=== PATIENT | female | born 1945 | race Caucasian/White ===

== ENCOUNTER 2016-06-15 11:56 | Emergency (ER) | payer MEDICARE, OTHER ==
--- NOTE | ~2016-06-15 | EKG ---
PATIENT: MARC SANTOS UNIT #: [id number] Ventricular Rate: 52 BPM Atrial Rate: 52 BPM P-R Interval: 188 ms QRS Duration: 80 ms Q-T Interval: 466 ms QTC Calculation(Bezet): 433 ms P [place]: 40 degrees Calculated R [place]: 1 degrees Calculated T [place]: 16 degrees Diagnosis Line: Sinus bradycardia Diagnosis Line: Otherwise normal ECG Diagnosis Line: Diagnosis Line: Confirmed by SHERLY CHAUDHRY MD ([id number]) on Diagnosis Line: 06/16/2016 12:07:47 AM INTERPRETING MD: ISIDORO LÓPEZ
--- NOTE | ~2016-06-15 | CR72 ---
[facility] A Service of [facility] RADIOLOGY TEXT RESULTS PATIENT: MARC BUSTAMANTE LOCATION: [facility] : 43 UNIT #: [id number] AGE: [address]: Bhavin Niño MD SEX: F ORDER DR: [id number] [facility] [address] [place], [place] [address] [id number] E MR#: [id number] #: [id number] NAME: MARC BUSTAMANTE : 1945 SEX: F STUDY DATE/TIME: 06/15/2016 12:00 UNIT: MALIA ROOM: STUDY DESCRIPTION: CR Chest Single View Portable Attending Physician: Bhavin Niño M.D. Ordering Physician: Bhavin Niño M.D. Primary Care Physician: Monserrat Petersen M.D. MEDICAL IMAGING REPORT This report is preliminary unless electronic signature is present EXAM Frontal chest, 06/15/2016 INDICATIONS Short of air, difficulty breathing, cough, congestion, right lung collapse 2 years ago, symptoms 2 days. TECHNIQUE Frontal chest was performed. COMPARISON 10/06/2013 FINDINGS The patient is rotated to the right. Cardiac silhouette is enlarged but stable. The aorta demonstrates atherosclerotic change. Vascularity is within normal limits. There is old, healed granulomatous disease. No effusion, pneumothorax or dense consolidation. IMPRESSION 1. Cardiomegaly without distinct volume overload. 2. Old healed granulomatous disease. 3. Exam degraded by patient rotation to the right. 4. Resolution of free air seen on the prior 2013 study. Dictated by... Milind Wooten M.D. THIS IS AN ELECTRONICALLY VERIFIED REPORT Milind Wooten M.D. at 06/16/2016 7:29 AM JEB/genevieve [facility] A Service [facility] RADIOLOGY TEXT RESULTS PATIENT: MARC BUSTAMANTE LOCATION: [facility] : 43 UNIT #: [id number] AGE: [address]: Bhavin Niño MD SEX: F ORDER DR: TD: 06/15/2016 18:13 JOB #: [id number] MEDICAL IMAGING REPORT COPY
[~2016-06-15 11:56] MED LIST: ADVAIR 250-501 EACH IH; ADVAIR 2501 DISK W/1; ALBUTEROL MININEB NEB; ALPRAZOLAM PO; ASPIR-TRIN325 MG PO; AUGMENTIN875 MG PO; COREG6.25 MG PO; HYDROCHLOROTH12.5 M1; LASIX80 MG PO; LISINOPRIL5 MG PO; MIRAPEX1 MG; MULTI-VITAMIN1 EAC1; PREDNISONE10 MG PO; SINGULAIR PO; TOFRANIL25 MG
[2016-06-15 12:00] LABS: BASOPHIL% 0.1 % (0-2.5); DIFF IND NO; EOSINOPHIL# 1.4 X10e3 (0-0.7); EOSINOPHIL% 19.5 % (0.0-7.0); HEMATOCRIT 39.5 % (35.0-45.0); HEMOGLOBIN 13.1 gm/dL (12.0-16.0); LYMPHOCYTE# 2.3 X10e3 (1.0-3.5); LYMPHOCYTE% 32.9 % (17.0-45.0); MEAN CELL VOLUME 86.4 FL (83-96); MEAN CORPUSCULAR HEMOGLOBIN 28.7 PG (28-34); MEAN CORPUSCULAR HGB CONC 33.2 g/dL (30-36); MEAN PLATELET VOLUME 8.1 FL (6.5-11.5); MONOCYTE# 0.6 X10e3 (0-1.0); MONOCYTE% 8.7 % (3.0-12.0); NEUTROPHIL# 2.7 X10e3 (1.5-7.1); NEUTROPHIL% 38.8 % (40-75); PLATELET COUNT 229 X10e3 (140-420); RED BLOOD COUNT 4.57 X10e (3.90-5.30); RED CELL DISTRIBUTION WIDTH 13.7 % (11.0-15.5); WHITE BLOOD COUNT 7.1 X10e3 (4.0-10.5)
[2016-06-15 12:21] LABS: ALBUMIN SERUM 4.4 g/dL (3.5-5.0); ALKALINE PHOSPHATASE 54 U/L (32-92); ALT (SGPT) 21 U/L (10-40); AST (SGOT) 26 U/L (10-42); BILIRUBIN, DIRECT 0.1 mg/dL (0.0-0.2); BILIRUBIN,INDIRECT 0.8 mg/dL (0.0-0.9); BILIRUBIN,TOTAL 0.9 mg/dL (0.2-2.0); BLOOD UREA NITROGEN 13 mg/dL (9-23); BUN/CREATININE RATIO 16.25; CALCIUM SERUM 9.1 mg/dL (8.4-10.2); CARBON DIOXIDE 24 mmol/L (22-31); CHLORIDE 106 mmol/L (100-111); CREATININE SERUM 0.8 mg/dL (0.6-1.4); GLOM FILT RATE Estimated ABOVE60 mL/min (>60); GLUCOSE FASTING 93 mg/dL (70-110); POTASSIUM 3.6 mmol/L (3.5-5.1); PROTEIN TOTAL SERUM 7.1 g/dL (6.0-8.3); SODIUM 139 mmol/L (135-145)
== END 2016-06-15 14:50 | disposition home or self-care (01) ==
LOC: CED 11:56
PROVIDERS: Emergency Medicine
DX: J44.1 Chronic obstructive pulmonary disease with (acute) exacerbation (principal); I10 Essential (primary) hypertension; Z88.7 Allergy status to serum and vaccine
CPT/HCPCS: 36415; 71010; 80048; 80076; 85025; 93005; 94640; 96374; 99284; J2930

== ENCOUNTER 2016-07-16 09:53 | Observation (INO) | payer MEDICARE, OTHER ==
--- NOTE | ~2016-07-16 | HP ---
Unit #: [id number] #: [id number] Patient: MARC BUSTAMANTE [id number] [address] [place], [place] [address] [id number] I MR#: [id number] NAME: MARC BUSTAMANTE ROOM: 469 Age: 71 Sex: F Admission Date: 07/16/2016 : 1945 Attending Physician: Ronal Kurtz M.D. Referring Physician: Ronal Kurtz M.D. Primary Care Physician: Monserrat Petersen M.D. HISTORY AND PHYSICAL HISTORY OF PRESENT ILLNESS Ms. Craft is a 71-year-old white female who is followed in our office for COPD. She was seen there last on 06/25/2016 post exacerbation of COPD. She apparently received a course of steroids and responded positively to that. Her medications were adjusted that day to include albuterol, Anoro and Arnuity, an inhaled corticosteroid was added. She was to call if it provided improvement. She said she called the last two days and needed a refill but had not received a call back yet. She was in her normal state of health and came to the endoscopy suite for scheduled colonoscopy today. Post colonoscopy she awakened quite dyspneic with wheezing and we were called to see the patient. She was placed on supplemental oxygen. She had not had any fever, chills, sweats, cough, or purulent sputum. She denied really any chest pain. She did have some fullness in her chest. PAST MEDICAL HISTORY Significant for: 1. History of COPD/asthma. 2. Celiac sprue. 3. Possible hypertension. 4. She had a history of HERNÁN but apparently lost weight and had a uvulopharyngopalatoplasty. Follow up sleep study revealed no HERNÁN. 5. 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 Landon Manriquez. 6. History of allergic rhinitis. 7. Hypertension. 8. Some degree of depression. PAST SURGICAL HISTORY She denies any surgery except for a chest tube placement for a tension pneumothorax in 2013. HOME MEDICATIONS 1. Arnuity. 2. Anoro. 3. Ventolin. 4. Nasacort. 5. Albuterol. 6. Lisinopril. 7. Atorvastatin. 8. Zoloft. 9. Coreg. 10. Lyrica. Unit #: [id number] #: [id number] Patient: MARC BUSTAMANTE 11. Singulair. 12. Tizanidine. 13. Alendronate. 14. Osteo Bi-Flex. 15. Naproxen. 16. Prednisolone. 17. Zyrtec. 18. Aspirin. 19. Vitamins B12, E, and D3. ALLERGIES None known. SOCIAL HISTORY Nonsmoker. No alcohol. FAMILY HISTORY Negative for lung disease. REVIEW OF SYSTEMS Otherwise unremarkable. PHYSICAL EXAMINATION VITAL SIGNS: Blood pressure 121/70, pulse 70, respiratory rate 18, afebrile. GENERAL: White female in no distress. HEENT: Normocephalic, atraumatic. Pupils equal, round, reactive. Sclerae anicteric. Nasal passages patent. Posterior pharynx clear. Airway is small post UP3. NECK: Supple. Trachea midline. No cervical or supraclavicular lymphadenopathy. LUNGS: Reveal expiratory wheezing bilaterally. She has marked kyphosis at the thoracic spine. HEART: Regular rate and rhythm. Could not appreciate murmur, rub or gallop. ABDOMEN: Nontender. Bowel sounds present. No hepatosplenomegaly. EXTREMITIES: Without clubbing, cyanosis, or edema. NEUROLOGIC: Awake, oriented x3. Cranial nerves grossly intact. Muscle strength symmetric. PSYCHIATRIC: Affect calm. SKIN: Warm and dry. DIAGNOSTIC STUDIES LABORATORY: Currently, room air O2 saturation is 91% to 93%. IMPRESSION 1. Asthma exacerbation, post colonoscopy. 2. History of hypertension. 3. Allergic rhinitis. 4. History of nonischemic cardiomyopathy. 5. Other problems as mentioned above. PLAN 1. Admit for observation. 2. Treat with inhaled bronchodilators, IV steroids. 3. Will rule out AL. 4. I have ordered chest x-ray. 5. Will make further recommendations pending this. Suspect she will Unit #: [id number] #: [id number] Patient: MARC BUSTAMANTE only need to be monitored overnight. Dictated by Melissa Richmond/oniel TD: 07/16/2016 19:40 JOB #: [id number] CC: Mark Hendrix M.D. HISTORY AND PHYSICAL Page 1 of 1 X Rajinder Jordan MD HISTORY AND PHYSICAL
--- NOTE | ~2016-07-16 | DS ---
Unit #: [id number] #: [id number] Patient: MARC BUSTAMANTE [id number] [address] [address] [id number] I MR#: [id number] NAME: MARC BUSTAMANTE ROOM: 469 Age: 71 Sex: F Admission Date: 07/16/2016 : 1945 Discharge Date: 07/17/2016 Attending Physician: Rajinder Jordan M.D. Referring Physician: Ronal Kurtz M.D. Primary Care Physician: Monserrat Petersen M.D. DISCHARGE SUMMARY DISCHARGE DIAGNOSES 1. Chronic obstructive pulmonary disease exacerbation. 2. Severe shortness of breath and respiratory distress, resolved. 3. Status post colonoscopy. 4. History of obstructive sleep apnea with resolution following weight loss. 5. Hypertension. 6. Depression. 7. Allergic rhinitis. 8. Significant cardiac disease with vague details. She did have cardiomyopathy on previous evaluation but there is mention of normal left ventricular function now. DISCHARGE MEDICATIONS 1. Anoro one puff daily. 2. Arnuity one puff daily. 3. Prednisone 40 mg a day for five days. 4. Albuterol mini nebs q.i.d. p.r.n. 5. Albuterol inhaler q.i.d. p.r.n. 6. Lyrica 75 mg a day. 7. Zoloft 100 mg a day. 8. Coreg 6.25 mg twice daily. 9. Lipitor 40 mg at bedtime. 10. Zestril 5 mg at bedtime. 11. Fosamax 70 mg weekly. 12. Singulair 10 mg daily. 13. Aspirin 81 mg daily. 14. She is on a variety of p.r.n. medications that she can continue which are over the counter. FOLLOWUP 1. Dr. Petersen for general medical care. 2. Dr. Hendrix's nurse practitioner in two weeks. 3. Dr. Hendrix in six to eight weeks[address] 4. Dr. Kurtz, as he desires. 5. Dr. Manriquez as scheduled. ACTIVITY No specific restrictions. Oxygenation needs will be checked prior to discharge. Unit #: [id number] #: [id number] Patient: DIANNA,MARC DIET As per previous. DESCRIPTION OF HOSPITALIZATION Apparently, the patient received colonoscopy. Those results are not available. There is no dictation in the computer. She developed severe shortness of breath and wheezing. Dr. Jordan was called and admitted her to the hospital. She was treated with oxygen, steroids and she feels much better. In fact, today, on the day of discharge, she is asking for discharge. She feels near her baseline pulmonary status. There has been no fever, sputum production or anginal chest pain. Overall, she was discharged in markedly improved condition. We will continue her inhaled steroids and a prescription has been provided. (1) sprue, hypertension, depression, allergic rhinitis and nonischemic cardiomyopathy in the past but some mention of improved left ventricular function. 2. Obstructive sleep apnea, resolved with weight loss, although that study is unavailable for my review at present. Dictated by... Mark Hendrix M.D. DEENA/emilia TD: 07/18/2016 11:05 JOB #: [id number] DISCHARGE SUMMARY Page 1 of 1 X Mark Hendrix MD DISCHARGE SUMMARY
--- NOTE | ~2016-07-16 | OR ---
Unit #: [id number] #: [id number] Patient: MARC BUSTAMANTE [id number] [address] [place], [place] [address] [id number] MR#: [id number] NAME: MARC BUSTAMANTE ROOM: 469 Date of Procedure: 07/16/2016 Admission Date: 07/16/2016 Surgeon: Ronal Kurtz M.D. : 1945 Attending Physician: Rajinder Jordan M.D. Referring Physician: Ronal Kurtz M.D. Primary Care Physician: Monserrat Petersen M.D. OPERATIVE REPORT PROCEDURE PERFORMED Colonoscopy with snare polypectomy to cecum. INDICATIONS FOR PROCEDURE The patient with average risk for colorectal cancer, here for screening colonoscopy. MEDICATIONS Monitored anesthesia. POSTOPERATIVE FINDINGS 1. Polyp 6 to 8 mm in descending colon, snared and sent for histopathology. 2. Rest of the colon exam to cecum was normal with good prep. PLAN Repeat colonoscopy in 5 years. Follow up on the pathology report. DESCRIPTION OF PROCEDURE The patient was explained of the procedure, risks, and benefits along with risks and benefits of anesthesia. She was brought to the endoscopy room. Propofol anesthesia was given. Rectal exam was done, which was normal. Colonoscope was lubricated, passed up the rectum, advanced under direct vision all the way to the cecum. Cecum was identified by ileocecal valve and appendiceal orifice. Then, I started to pull the scope out carefully looking. Polyp in the descending colon was snared and sent for histopathology. Rest of the mucosa was normal. I retroflexed in the rectum, small hemorrhoids seen. Scope was gently pulled out. She tolerated it well. Dictated by... Melissa Cox/david TD: 07/31/2016 23:56 JOB #: [id number] Unit #: [id number] #: [id number] Patient: MARC BUSTAMANTE OPERATIVE REPORT Page 1 of 1 X Ronal Kurtz MD PROCEDURE OPERATIVE NOTE
--- NOTE | ~2016-07-16 | CR72 ---
[facility] A Service of [facility] RADIOLOGY TEXT RESULTS PATIENT: MARC BUSTAMANTE LOCATION: [facility] 469-01 : 43 UNIT #: [id number] AGE: [address]: Ronal Kurtz MD SEX: F ORDER DR: [id number] [facility] [address] [place], [place] [address] [id number] O MR#: [id number] Acc #: [id number] NAME: MARC BUSTAMANTE : 1945 SEX: F STUDY DATE/TIME: 07/16/2016 15:31 UNIT: RN IMAGING ROOM: STUDY DESCRIPTION: CR Chest Single View Portable Attending Physician: Ronal Kurtz M.D. Referring Physician: Ronal Kurtz M.D. Ordering Physician: Ronal Kurtz M.D. Primary Care Physician: Monserrat Petersen M.D. MEDICAL IMAGING REPORT This report is preliminary unless electronic signature is present EXAM Portable chest 07/16/2016 HISTORY Shortness of air after endoscopy today. COMPARISON 06/15/2016 FINDINGS A portable view of the chest was obtained. The heart size and vascularity are normal and the lungs are clear. Bones are unremarkable. IMPRESSION No active disease. Dictated by... Ciaran Pimentel M.D. THIS IS AN ELECTRONICALLY VERIFIED REPORT Ciaran Pimentel M.D. at 07/17/2016 8:21 AM ROVERTO/dorothy TD: 07/16/2016 16:52 JOB #: [id number] MEDICAL IMAGING REPORT Page 1 of 1 COPY
[2016-07-16] MEDS ORDERED: ALBUTEROL17 GM INH (10:36)
[2016-07-16] MEDS ORDERED: ANORO ELLIPTA1 EACH INH (10:36)
[2016-07-16] MEDS ORDERED: NASACORT10.8 ML (10:36)
[2016-07-16] MEDS ORDERED: ARNUITY ELLIP100 MCG INH (10:36)
[2016-07-16] MEDS ORDERED: ALBUTEROL SULFATE NEB (10:37)
[2016-07-16] MEDS ORDERED: LISINOPRIL5 MG PO (10:37)
[2016-07-16] MEDS ORDERED: SERTRALINE HCL100 M1 PO (10:38)
[2016-07-16] MEDS ORDERED: LIPITOR PO (10:38)
[2016-07-16] MEDS ORDERED: CARVEDILOL6.25 MG PO (10:39)
[2016-07-16] MEDS ORDERED: LYRICA75 MG PO (10:39)
[2016-07-16] MEDS ORDERED: SINGULAIR PO (10:39)
[2016-07-16] MEDS ORDERED: TIZANIDINE HCL4 M1 PO (10:40)
[2016-07-16] MEDS ORDERED: FOSAMAX70 MG PO (10:40)
[2016-07-16] MEDS ORDERED: OSTEO BI-FLEX1 EAC2 PO (10:40)
[2016-07-16] MEDS ORDERED: PREDNISOLONE AC OU (10:41)
[2016-07-16] MEDS ORDERED: NAPROSYN500 MG PO (10:41)
[2016-07-16] MEDS ORDERED: ASPIRIN EC81 M1 PO (10:42)
[2016-07-16] MEDS ORDERED: MULTIPLE VITAM1 EAC1 (10:42)
[2016-07-16] MEDS ORDERED: VITAMIN D3 PO (10:42)
[2016-07-16] MEDS ORDERED: ZYRTEC10 M1 PO (10:42)
[2016-07-16] MEDS ORDERED: VITAMIN B 12 PO (10:43)
[2016-07-16] MEDS ORDERED: VITAMIN E PO (10:43)
[2016-07-16 17:09] LABS: EOSINOPHIL# 0.2 X10e3 (0-0.7); EOSINOPHIL% 1.7 % (0.0-7.0); HEMATOCRIT 46.2 % (35.0-45.0); LYMPHOCYTE% 9.4 % (17.0-45.0); MEAN CELL VOLUME 89.8 FL (83-96); MEAN CORPUSCULAR HEMOGLOBIN 29.1 PG (28-34); MEAN CORPUSCULAR HGB CONC 32.4 g/dL (30-36); MEAN PLATELET VOLUME 8.1 FL (6.5-11.5); MONOCYTE# 0.3 X10e3 (0-1.0); MONOCYTE% 2.7 % (3.0-12.0); NEUTROPHIL# 9.2 X10e3 (1.5-7.1); NEUTROPHIL% 86.2 % (40-75); PLATELET COUNT 271 X10e3 (140-420); RED BLOOD COUNT 5.14 X10e (3.90-5.30); RED CELL DISTRIBUTION WIDTH 13.5 % (11.0-15.5); WHITE BLOOD COUNT 10.7 X10e3 (4.0-10.5)
[2016-07-16 17:11] LABS: DIFF IND NO
[2016-07-16 17:25] LABS: CK TOTAL 58 IU/L (26-140)
[2016-07-16 17:39] LABS: BUN/CREATININE RATIO 12.5; CALCIUM SERUM 9.4 mg/dL (8.4-10.2); CREATININE SERUM 0.8 mg/dL (0.6-1.4); GLOM FILT RATE Estimated 73.2 mL/min (>60); POTASSIUM 3.9 mmol/L (3.5-5.1)
[2016-07-16 23:43] LABS: %MB 2.7 % (0.0-4.0); MB 1.8 ng/ml
[2016-07-17] MEDS ORDERED: ARNUITY ELLIP100 MCG INH (12:51)
[2016-07-17] MEDS ORDERED: PREDNISONE PO (12:52)
[2016-07-17] MEDS ORDERED: ALBUTEROL MININEB NEB (12:53)
== END 2016-07-17 17:30 | disposition home or self-care (01) ==
LOC: COPS 09:53 → CPACUOF 15:50 → C4C 17:20
PROVIDERS: Internal Medicine
DX: Z12.11 Encounter for screening for malignant neoplasm of colon (principal); D12.4 Benign neoplasm of descending colon; J44.1 Chronic obstructive pulmonary disease with (acute) exacerbation; I42.9 Cardiomyopathy, unspecified; K21.9 Gastro-esophageal reflux disease without esophagitis; Z68.33 Body mass index [BMI] 33.0-33.9, adult; Z88.7 Allergy status to serum and vaccine; I10 Essential (primary) hypertension; Z79.51 Long term (current) use of inhaled steroids; Z79.899 Other long term (current) drug therapy
CPT/HCPCS: 71010; 80048; 82550; 82553; 84484; 85025; 88305; 94640; 94664; 94760; 96374; 96376; G0378; J2920; J2930